=== PATIENT | female | born 1965 | race Caucasian/White ===

== ENCOUNTER 2021-06-09 11:27 | Emergency (ER) | payer MEDICARE, MEDICAID, SELFPAY ==
[2021-06-09 12:26] VITALS: BP 133/80; PULSE 88; RESP 18; TEMP 36.8; O2SAT 97; BMI 29.2
--- NOTE | 2021-06-09 12:36 | HMH.EDUTC ---
[facility] [place] Clinical Impression: Abscess of right arm Cellulitis Qualifiers: Site of cellulitis: extremity Site of cellulitis of extremity: upper extremity Laterality: right Qualified Code(s): L03.113 - Cellulitis of right upper limb Disposition: Home, Self-Care Condition on Discharge: Good Instructions: Cellulitis, Boil Additional Instructions: Keep the affected area clean and dry. Follow up with your regular doctor. Take the antibiotics as directed and apply the topical antibiotics as directed. Apply warm wet compresses to the affected areas three or four times per day for 10 to 20 minutes each time. GO TO THE ER FOR ANY WORSENING SYMPTOMS, ESPECIALLY ANY FEVER, CHILLS, BODY ACHES, WORSENING SWELLING, WORSENING REDNESS, ETC Prescriptions: Sulfamethoxazole/Trimethoprim [Bactrim DS tablet] 1 each PO BID 10 Days #20 tab Transmission Status: Received by [facility] #[id number] Mupirocin [Bactroban 2% Ointment 22gm tube] 1 applicatio TP TID 7 Days #1 gm Transmission Status: Received by [facility] #[id number] cephALEXin [cephALEXin 500mg capsule] 500 mg PO Q6H 10 Days #40 cap Transmission Status: Received by [facility] #[id number] Referrals: Provider,Referral, MD [Primary Care Provider] - Time of Disposition: 13:17 Medical Decision Making - Medical Records Medical records reviewed: No: I reviewed the patient's medical records. - Bob Inquiry Pt receiving controlled substance: No Vital Signs: 06/09/21 12:26 06/09/21 12:59 Temperature 98.2 F 98.2 F Temperature Source Oral Pulse Rate 88 Pulse Rate [Left] 88 Respiratory Rate 18 18 Blood Pressure 133/80 Blood Pressure [Right Arm] 133/80 Blood Pressure Mean [Right Arm] 97 02 Sat by Pulse Oximetry 97 Orders (Tests/Meds): ED MEDICATIONS Discontinued Medications Generic Name Dose Route Start Last Admin Trade Name Freq PRN Reason Stop Dose Admin Ceftriaxone Sodium 1 gm 06/09/21 12:45 06/09/21 12:50 Ceftriaxone 1gm Vial IM 06/09/21 12:46 1 gm ONCE ONE Administration Lidocaine HCl 0 ml 06/09/21 12:45 06/09/21 12:50 Lidocaine 1% 5ml Pf Vial IM 06/09/21 12:46 2 ml ONCE ONE Administration ORDERS Category Date Time Status Wound Culture and Gram Stain Stat Micro 06/09/21 12:45 Results Medical Decision Narrative: She refused transfer to the er. [facility] [place] - General Stated complaint: possible spider bite on right arm Time Seen by Provider: 06/09/21 12:36 Mode of Arrival: Ambulatory Source of Information: Patient Limitations: No Limitations Description of Symptoms (Recalled from Triage Doc. by RN): pt states she was released from an inpatient stay at the hospital on 06/06. she was hospitalized for IV antibiotics for an infection on her inner RAC. the area is still open and oozing. however, pt has a red, swollen, golf ball size abcess on her RFA that is white in the middle but has not broke. pt also has a large swollen area on the top of her R wrist. 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 HEENT Symptoms (Recalled from RN notes): No Resp Symptoms (Recalled from RN notes): No Skin Symptoms (Recalled from RN notes): Yes (see triage note at top of page.) MS Symptoms (Recalled from RN notes): No Functional Status (Recalled from RN notes): wnl - History of Present Illness Provider Complaint: She states that she has an abscess on her right arm. She has a history of iv drug use. She states that she has been clean for the past 2 weeks. She has an abscess on her right arm. She was hospitalized about 10 days ago with a different abscess on that arm. She states the previous one is healing. She did not want to be readmitted so she came here instead of going to that hospital in [facility]. She denies any fever or chills. - Related Data Previous Rx's Medication Instructions Recorded Mupirocin [Bactroban 2% Ointment 1 applicatio TP TID 7 Days #1 gm 06/09/21 22gm
[2021-06-09 12:59] VITALS: BP 133/80; PULSE 88; RESP 18; TEMP 36.8
== END 2021-06-09 13:24 | disposition home or self-care (01) ==
PROVIDERS: Emergency Provider Nurse Practitioner Family
DX: L02.413 Cutaneous abscess of right upper limb (principal); F19.11 Other psychoactive substance abuse, in remission
CPT/HCPCS: G0463; 87070; 87205; 96372; 99202

== ENCOUNTER 2021-09-15 07:58 | Emergency (ER) | payer MEDICARE, MEDICAID, SELFPAY ==
[2021-09-15 08:00] VITALS: BP 149/87; PULSE 99; RESP 19; TEMP 36.8; O2SAT 98; BMI 31.7
[2021-09-15 08:11] VITALS: BMI 31.7
--- NOTE | 2021-09-15 08:20 | HMH.EDGENADL ---
ED Disposition Clinical Impression: Hyperglycemia, Gastroenteritis Disposition: Left Against Medical Advice Condition on Discharge: Good Referrals: Provider,Referral, [Primary Care Provider] - - Critical Care Critical Care Time: No Attestation: On 09/15/21, the high probability of a clinically significant, sudden or life threatening deterioration of the following system(s) required my full and direct attention, intervention and personal management. The time I documented below is in addition to time spent performing reported procedures but includes the following listed in this critical care notation. Medical Decision Making - Medical Records Medical records reviewed: Yes: I reviewed the patient's medical records. - Bob Inquiry Pt receiving controlled substance: No Vital Signs: 09/15/21 08:00 09/15/21 10:53 09/15/21 11:00 Temperature 98.2 F Temperature Source Oral Pulse Rate 94 H 94 H Pulse Rate [Right] 99 H Respiratory Rate 19 Blood Pressure 103/57 L 112/60 Blood Pressure [Right Arm] 149/87 H Blood Pressure Mean 70 75 Blood Pressure Mean [Right Arm] 107 Blood Pressure Source [Right Arm] Automatic Cuff Blood Pressure Position [Right Arm] Supine 02 Sat by Pulse Oximetry 98 99 99 Oxygen Delivery Method Room Air - Lab Data Lab Results 09/15/21 08:30: WBC 8.6, RBC 5.77 H, Hgb 16.9 H, Hct 51.4 H, MCV 89.0, MCH 29.3, MCHC 33.0, RDW 13.9, Plt Count 219, MPV 8.4, Neut % (Auto) 63.6, Lymph % (Auto) 29.0, [place] % (Auto) 5.5, Eos % (Auto) 0.4, Baso % (Auto) 1.5, Neut # (Auto) 5.5, Lymph # (Auto) 2.5, [place] # (Auto) 0.5, Eos # (Auto) 0.0, Baso # (Auto) 0.1 09/15/21 08:30: Sodium 127 L, Potassium 4.2, Chloride 99, Carbon Dioxide 16 L, Anion Gap 16.2 H, BUN 35 H, Creatinine 0.80, Estimated Creat Clear 103, Estimated GFR 74, Est GFR ( Amer) 89, Glucose 519 H*, Calcium 8.3 L, Total Bilirubin 0.6, AST 61 H, ALT 68, Alkaline Phosphatase 114, Total Protein 7.7, Albumin 4.0, Globulin 3.7 H, Albumin/Globulin Ratio 1.1 09/15/21 08:38: Acetone Level None detected 09/15/21 08:57: VBG pH 7.44 H, VBG pCO2 23.3 L, VBG pO2 183.7 H, VBG HCO3 15.5 L, VBG Total CO2 16.2 L, VBG O2 Saturation 99.2 H, VBG Base Excess -8.7 L 09/15/21 09:09: Urine Color Yellow, Urine Appearance Clear, Urine pH 6.0, Ur Specific [place] 1.010, Urine Protein Negative, Urine Glucose (UA) 3+, Urine Ketones Negative, Urine Blood Trace-i, Urine Nitrate Negative, Urine Bilirubin Negative, Urine Urobilinogen 0.2, Ur Leukocyte Esterase Negative, Urine RBC Occasional, Urine WBC 3-5, Ur Squamous Epith Cells 3-5, Urine Bacteria None 09/15/21 11:31: POC Glucose 424 H* Result diagrams: 09/15/21 08:30 09/15/21 08:30 Orders (Tests/Meds): ED MEDICATIONS Discontinued Medications Generic Name Dose Route Start Last Admin Trade Name Freq PRN Reason Stop Dose Admin Sodium Chloride 1,000 mls @ 999 mls/hr 09/15/21 08:15 09/15/21 08:38 Sod Chlor 0.9% 1000ml Bag IV 09/15/21 09:15 999 mls/hr .Q1H1M GAGAN Administration Sodium Chloride 1,000 mls @ 999 mls/hr 09/15/21 09:00 09/15/21 09:18 Sod Chlor 0.9% 1000ml Bag IV 09/15/21 10:00 999 mls/hr .Q1H1M GAGAN Administration Sodium Chloride 1,000 mls @ 999 mls/hr 09/15/21 09:00 Sod Chlor 0.9% 1000ml Bag IV 09/15/21 10:00 .Q1H1M GAGAN Insulin Human Regular 8 unit 09/15/21 09:01 09/15/21 09:16 Insulin Human Regular 100 Units/Ml 10ml Vial IVP 09/15/21 09:02 8 unit ONCE ONE Administration Insulin Human Regular 5 unit 09/15/21 11:32 Insulin Human Regular 100 Units/Ml 10ml Vial IVP 09/15/21 11:33 ONCE ONE Metoclopramide HCl 10 mg 09/15/21 08:10 09/15/21 08:38 Metoclopramide Hcl 10mg/2ml Vial IVP 09/15/21 08:11 10 mg ONCE ONE Administration Ondansetron HCl 8 mg 09/15/21 08:10 09/15/21 08:38 Ondansetron 4mg/2ml Vial IV 09/15/21 08:11 8 mg ONCE ONE Administration - Reevaluation(s) Time: 11:47 (pt left AMA says she had to go
[2021-09-15 08:46] LABS: Basophils # 0.1 K/mm3 (0-0.2); Basophils % 1.5 % (0.1-2.0); Eosinophils % 0.4 % (0.1-12.0); Hematocrit 51.4 % (37.0-47.0); Hemoglobin 16.9 g/dL (12.2-16.2); Lymphocytes # 2.5 K/mm3 (0.7-4.5); Mean Corpuscular Hemoglobin 29.3 pg (27.0-31.2); Mean Platelet Volume 8.4 fl (7.4-10.4); Monocytes # 0.5 K/mm3 (0.1-1.0); Monocytes % 5.5 % (1.7-9.3); Neutrophils # 5.5 K/mm3 (1.8-7.8); Neutrophils % 63.6 % (37.0-80.0); Platelet Count 219 K/mm3 (142-424); Red Blood Count 5.77 M/mm3 (4.20-5.40); Red Cell Distribution Width 13.9 % (11.5-17.5); White Blood Count 8.6 K/mm3 (4.8-10.8)
[2021-09-15 08:50] LABS: Chloride 99 mmol/L (98-107); Potassium 4.2 mmoL/L (3.5-5.1); Sodium 127 mmol/L (136-145)
[2021-09-15 08:52] LABS: Alanine Aminotransferase 68 U/L (12-78); Aspartate Amino Transferase 61 U/L (14-36); Blood Urea Nitrogen 35 mg/dl (7-17); Creatinine Clearance Estimated 103 mL/min (50-200); Estimated Glomerular Filt Rate 74 ml/min (>60); GFR (African American) 89 ML/MIN (>60)
[2021-09-15 08:53] LABS: Albumin/Globulin Ratio 1.1 (1.1-1.8); Alkaline Phosphatase 114 U/L (38-126); Anion Gap 16.2 mEq/L (5-15); Bilirubin,Total 0.6 mg/dl (0.2-1.3); Calcium 8.3 mg/dl (8.4-10.2); Carbon Dioxide 16 mmol/L (22.0-30.0); Globulin 3.7 g/dL (1.3-3.2); Total Protein,Serum 7.7 g/dl (6.3-8.2)
[2021-09-15 08:55] LABS: Glucose 519 mg/dl (74-100)
--- NOTE | 2021-09-15 08:56 | PC.NURSE ---
critical glucose reported to ER asked pt about diabetes, states she is has IDDM, reports last time she had her insulin was 3 days ago-notified JESUS MELCHOR
--- NOTE | 2021-09-15 09:12 | PC.NURSE ---
Called respiratory to notify them of VBG order
--- NOTE | 2021-09-15 09:13 | PC.NURSE ---
[facility] aware of vbg order
[2021-09-15 09:18] LABS: Acetone, Serum (Rapid) None Detected (None Detect)
[2021-09-15 09:19] LABS: VBG Base Excess -8.7 mmol/L (-2.4-2.3); VBG HCO3 15.5 mmol/L (23-30); VBG Oxygen Saturation 99.2 % (50-70); VBG PH 7.44 mmol/L (7.31-7.41); VBG PO2 183.7 mmol/L (28-40); VBG Total CO2 16.2 mmol/L (23-27)
[2021-09-15 09:20] LABS: Microscopic, Urine URINE MICROSCOPIC (MICROSCOPIC)
[2021-09-15 09:22] LABS: Appearance,Urine CLEAR (Clear); Bilirubin,Urine Negative (Negative); Blood, Urine TRACE-I (Negative); Color,Urine YELLOW (Yellow); Glucose,Urine (UA) 3+ (Negative); Ketones,Urine Negative (Negative); Leukocyte Esterase,Urine Negative (Negative); Nitrate,Urine Negative (Negative); Protein,Urine Negative (Negative); Urobilinogen,Urine 0.2 EU/dl (0.2)
[2021-09-15 09:22] LABS: VBG PCO2 23.3 mmol/L (35-51)
--- NOTE | 2021-09-15 09:29 | PC.NURSE ---
dr hilton kaplan
[2021-09-15 09:36] LABS: RBC,Urine Occasional #/hpf (0-3)
--- NOTE | 2021-09-15 09:43 | PC.NURSE ---
patient ambulatory to restroom and back to room without any complications
--- NOTE | 2021-09-15 09:47 | PC.NURSE ---
ED MD at for update on POC
--- NOTE | 2021-09-15 10:04 | PC.NURSE ---
patient ambulatory to restroom without any complications
--- NOTE | 2021-09-15 10:07 | PC.NURSE ---
Patient back from restroom and to stretcher without any complications
[2021-09-15 10:53] VITALS: BP 103/57; PULSE 94; O2SAT 99
[2021-09-15 11:00] VITALS: BP 112/60; PULSE 94; O2SAT 99
[2021-09-15 11:35] VITALS: BP 112/60; PULSE 94; RESP 20; TEMP 36.8; O2SAT 99
--- NOTE | 2021-09-15 11:35 | PC.NURSE ---
Pt states that a her crazy ride is coming to get her and she is unable to get another ride so she needs to leave. States she will fu with her PCP. aware. PT left AMA
[2021-09-15 11:38] LABS: POC Glucose,Bedside 424 (70-110)
== END 2021-09-15 11:36 | disposition left against medical advice (07) ==
PROVIDERS: Emergency Provider Emergency Medicine
DX: K52.9 Noninfective gastroenteritis and colitis, unspecified; R73.9 Hyperglycemia, unspecified; Z79.1 Long term (current) use of non-steroidal anti-inflammatories (NSAID); Z79.4 Long term (current) use of insulin; Z79.899 Other long term (current) drug therapy
CPT/HCPCS: 80053; 81001; 82009; 82803; 82962; 85025; 96361; 96365; 96366; 96374; 96375; 99283; 99284; J2405